=== PATIENT | male | born 1980 | race Caucasian/White ===

== ENCOUNTER 2022-11-30 18:10 | Emergency (ER) | payer BC ==
[2022-11-30] MEDS ORDERED: Lidocaine 1% 10 ML MDV INJECT ONE (18:48)
[2022-11-30] MEDS ORDERED: Diphtheria,Pertussis(Acell),Tetanus Vaccine 0.5 ML Syringe IM ONE (20:18)
== END 2022-11-30 20:31 | disposition home or self-care (01) ==
LOC: VM.ED 18:10
DX: S61.255A Open bite of left ring finger without damage to nail, initial encounter (principal); Z23 Encounter for immunization; W54.0XXA Bitten by dog, initial encounter; Y92.009 Unspecified place in unspecified non-institutional (private) residence as the place of occurrence of the external cause
CPT/HCPCS: 12001; 90471; 90715; 99283; 99283-25; J3490